=== PATIENT | female | born 1945 | race Caucasian/White ===

== ENCOUNTER 2018-05-19 06:43 | Day surgery (SDC) | payer OTHER, MEDICARE ==
[2018-05-19] MEDS ORDERED: NEOMYCIN/POLY./DEXAM OPTH OINT OPTH ONE (06:44)
[2018-05-19] MEDS ORDERED: TETRACAINE HCL 0.5% 15 ML OPTH BTL OPTH ONE (06:44)
[2018-05-19] MEDS ORDERED: LIDOCAINE 2% MDV (20MG/ML) 20ML VIAL IV ONE ×2 (06:44)
[2018-05-19] MEDS ORDERED: PROPOFOL 10 MG/ML VIAL IV ONE (06:44)
[2018-05-19] MEDS ORDERED: EPINEPHRINE 1 MG/ML AMPUL SQ ONE (06:44)
[2018-05-19] MEDS ORDERED: CIPROFLOXACIN HCL 0.0015 GM, PHENYLEPHRINE HCL 0.05 GM, KETOROLAC TROMETHAMINE 0.000625 GM MC ONE ×5 (13:00)
--- NOTE | 2018-05-20 17:40 | Operative Note ---
DATE OF PROCEDURE: 05/20/18 PREOPERATIVE DIAGNOSIS: NUCLEAR SCLEROTIC CATARACT, LEFT EYE. POSTOPERATIVE DIAGNOSIS: NUCLEAR SCLEROTIC CATARACT, LEFT EYE. PROCEDURE: PHACOEMULSIFICATION OF CATARACTOUS LENS WITH IMPLANTATION OF INTRA- OCULAR LENS. SURGEON: LUIS RUSH M.D. LENS IMPLANT USED: CABRERA MODEL PCB00 +19.0 DIOPTERS. COMPLICATIONS: NONE. PROCEDURE: The patient was given reference juan francisco at the 0 and 180-degree position prior to being blocked in the usual fashion with the retrobulbar block in the left eye. The patient was then prepped and draped in the usual fashion and a lid speculum placed in the left eye. At this point, the corneal marker was used to create markings on the cornea at 168 degrees after which, a scleral tunnel wound was placed at the temporal limbus of 2.4 mm cord length. A paracentesis was placed 2 hours to the left and right of this and the chamber deepened with Viscoelastic. The keratome was used to enter through the scleral tunnel wound after which the continuous circular capsulorrhexis was accomplished without difficulty. Hydrodissection of the lens was performed and the nucleus of the lens was removed in a divide and conquer fashion. The residual cortical material was irrigated and aspirated from the eye and the bag and chamber were then reinflated with Viscoelastic. The intraocular lens was placed into the capsular bag and oriented to a position 10 degrees shorter the intended final access. The residual Viscoelastic was removed from the eye and the eye was then reinflated and the intraocular lens dialed into position at 168 degrees. The wound was noted to be water-tight to direct encounter pressure. The lid speculum was removed and the eye was patched and shielded to be re-examined later in the afternoon. JOB NUMBER: [id number] [facility]
== END 2018-05-19 09:30 | disposition home or self-care (01) ==
LOC: MERGE 06:43 → SUR 06:43
PROVIDERS: ATTEND Ophthalmology
DX: H25.12 Age-related nuclear cataract, left eye (principal); I10 Essential (primary) hypertension; E78.00 Pure hypercholesterolemia, unspecified; E11.9 Type 2 diabetes mellitus without complications; I25.2 Old myocardial infarction; Z95.5 Presence of coronary angioplasty implant and graft
CPT/HCPCS: J0171

== ENCOUNTER 2018-06-02 06:08 | Day surgery (SDC) | payer OTHER, MEDICARE ==
[2018-06-02] MEDS ORDERED: NEOMYCIN/POLY./DEXAM OPTH OINT OPTH ONE (06:09)
[2018-06-02] MEDS ORDERED: EPINEPHRINE 1 MG/ML AMPUL SQ ONE (06:09)
[2018-06-02] MEDS ORDERED: PROPOFOL 10 MG/ML VIAL IV ONE (06:09)
[2018-06-02] MEDS ORDERED: TETRACAINE HCL 0.5% 15 ML OPTH BTL OPTH ONE (06:09)
[2018-06-02] MEDS ORDERED: LIDOCAINE 2% MDV (20MG/ML) 20ML VIAL IV ONE ×2 (06:09)
[2018-06-02] MEDS ORDERED: CIPROFLOXACIN HCL 0.0015 GM, PHENYLEPHRINE HCL 0.05 GM, KETOROLAC TROMETHAMINE 0.000625 GM MC ONE ×5 (13:15)
--- NOTE | 2018-06-04 07:04 | Operative Note ---
DATE OF PROCEDURE: 06/02/18 PREOPERATIVE DIAGNOSIS: NUCLEAR SCLEROTIC CATARACT, RIGHT EYE. POSTOPERATIVE DIAGNOSIS: NUCLEAR SCLEROTIC CATARACT, RIGHT EYE. PROCEDURE: PHACOEMULSIFICATION OF CATARACTOUS LENS WITH IMPLANTATION OF INTRA- OCULAR LENS. SURGEON: LUIS RUSH M.D. LENS IMPLANT USED: CABRERA MODEL PCB00 +20.0 DIOPTERS. COMPLICATIONS: NONE. PROCEDURE: The patient was given reference juan francisco at the 0 and 180-degree position prior to being blocked in the usual fashion with the retrobulbar block in the right eye. The patient was then prepped and draped in the usual fashion and a lid speculum placed in the right eye. At this point, the corneal marker was used to create markings on the cornea at 168 degrees after which, a scleral tunnel wound was placed at the temporal limbus of 2.4 mm cord length. A paracentesis was placed 2 hours to the left and right of this and the chamber deepened with Viscoelastic. The keratome was used to enter through the scleral tunnel wound after which the continuous circular capsulorrhexis was accomplished without difficulty. Hydrodissection of the lens was performed and the nucleus of the lens was removed in a divide and conquer fashion. The residual cortical material was irrigated and aspirated from the eye and the bag and chamber were then reinflated with Viscoelastic. The intraocular lens was placed into the capsular bag and oriented to a position 10 degrees shorter the intended final access. The residual Viscoelastic was removed from the eye and the eye was then reinflated and the intraocular lens dialed into position at 168 degrees. The wound was noted to be water-tight to direct encounter pressure. The lid speculum was removed and the eye was patched and shielded to be re-examined later in the afternoon. JOB NUMBER: [id number] [facility]
== END 2018-06-02 08:30 | disposition home or self-care (01) ==
LOC: SUR 06:08 → MERGE 07:30 → SUR 08:30
PROVIDERS: ATTEND Ophthalmology
DX: H25.11 Age-related nuclear cataract, right eye (principal); I10 Essential (primary) hypertension; E78.00 Pure hypercholesterolemia, unspecified; E11.9 Type 2 diabetes mellitus without complications; I25.10 Atherosclerotic heart disease of native coronary artery without angina pectoris; I25.2 Old myocardial infarction; Z95.5 Presence of coronary angioplasty implant and graft
CPT/HCPCS: J0171